=== PATIENT | male | born 1945 | race Caucasian/White ===

== ENCOUNTER 2021-09-25 17:45 | Inpatient (IN) | payer MEDICARE, OTHER ==
[~2021-09-25] VITALS: Ht 177.8 cm; Wt 88.5 kg
[2021-09-25 19:04] LABS: HEMOGLOBIN 13.1 gm/dl (14.0-17.5); RED BLOOD COUNT 3.97 M/UL (4.20-5.50); WHITE BLOOD COUNT 10.9 K/UL (4.5-11.0)
[2021-09-26 03:22] LABS: HEMOGLOBIN 12.7 gm/dl (14.0-17.5); RED BLOOD COUNT 3.89 M/UL (4.20-5.50); WHITE BLOOD COUNT 12.2 K/UL (4.5-11.0)
[2021-09-26] MEDS ORDERED: CARVEDILOL25 MG PO (09:45)
[2021-09-26] MEDS ORDERED: PROTONIX 40 MG40 M1 PO (09:45)
[2021-09-26] MEDS ORDERED: PRAVASTATIN SOD20 MG PO (09:45)
[2021-09-26] MEDS ORDERED: SPIRONOLACTONE25 MG PO (09:46)
[2021-09-26] MEDS ORDERED: HYDRALAZINE HCL25 MG PO (09:47)
[2021-09-26] MEDS ORDERED: ISOSORBIDE MONO60 MG PO (09:47)
[2021-09-26] MEDS ORDERED: ASPIRIN EC81 MG PO (09:48)
[2021-09-27 03:31] LABS: RED BLOOD COUNT 3.63 M/UL (4.20-5.50)
[2021-09-27 04:14] LABS: WHITE BLOOD COUNT 17.3 K/UL (4.5-11.0)
[2021-09-28 16:04] LABS: HEMOGLOBIN 9.1 gm/dl (14.0-17.5); RED BLOOD COUNT 2.72 M/UL (4.20-5.50); WHITE BLOOD COUNT 12.7 K/UL (4.5-11.0)
[2021-09-29 02:14] LABS: HEMOGLOBIN 8.7 gm/dl (14.0-17.5); RED BLOOD COUNT 2.62 M/UL (4.20-5.50); WHITE BLOOD COUNT 10.7 K/UL (4.5-11.0)
[2021-09-29] MEDS ORDERED: ROXICODONE TAB 55 MG PO (10:52)
[2021-09-29] MEDS ORDERED: ENOXAPARIN40 MG/0.4 SC (10:52)
[2021-09-29] MEDS ORDERED: ACETAMINOPHEN500 MG PO (10:52)
[2021-09-29] MEDS ORDERED: CARVEDILOL6.25 MG PO (11:08)
[2021-09-29] MEDS ORDERED: MIRALAX17 GM PO (13:45)
== END 2021-09-29 19:03 | DRG 522 ==
LOC: ER1 17:45 → CDU 20:14 → M/S 20:14
PROVIDERS: Internal Medicine; Orthopaedic Surgery; Physician Assistant; ADMIT Internal Medicine
PROC: 0SRR0JZ Replacement of Right Hip Joint, Femoral Surface with Synthetic Substitute, Open Approach (ICD-10-PCS; principal; 2021-09-26 15:00)
DX: S72.001A Fracture of unspecified part of neck of right femur, initial encounter for closed fracture (principal); I50.22 Chronic systolic (congestive) heart failure; D62 Acute posthemorrhagic anemia; I13.0 Hypertensive heart and chronic kidney disease with heart failure and stage 1 through stage 4 chronic kidney disease, or unspecified chronic kidney disease; W17.89XA Other fall from one level to another, initial encounter; N18.30 Chronic kidney disease, stage 3 unspecified; Z20.822 Contact with and (suspected) exposure to COVID-19; E78.5 Hyperlipidemia, unspecified; K59.00 Constipation, unspecified; D75.89 Other specified diseases of blood and blood-forming organs; K21.9 Gastro-esophageal reflux disease without esophagitis; Z95.810 Presence of automatic (implantable) cardiac defibrillator
CPT/HCPCS: ECHO; 36415; 51702; 71045; 72131; 72170; 73502; 73552; 80048; 80053; 85018; 85025; 85027; 85610; 93005; 93306; 96374; 96375; 97110; 97161; 97166; 97530; 97530-GP-CQ; 99285; C1776; J0690; J1100; J1650; J2001; J2250; J2270; J2405; J2704; J2795; J3010; J7120; U0002